=== PATIENT | female | born 1995 | race Caucasian/White ===

== ENCOUNTER → 2024-06-21 | Outpatient (CLI) | payer OTHER ==
[2024-06-21 21:02] LABS: Bacterial Vaginosis PCR Negative (NEGATIVE); Candida Group, PCR NOT DETECTED (NOT DETECT); Candida glabrata-krusei, PCR NOT DETECTED (NOT DETECT)
== END ==
LOC: LAB 17:13 → LAB SHORT 17:13
DX: N89.8 Other specified noninflammatory disorders of vagina (principal); R82.90 Unspecified abnormal findings in urine
CPT/HCPCS: 81515; 87086

== ENCOUNTER → 2024-12-31 | Outpatient (CLI) | payer BC ==
[2024-12-31 15:36] LABS: Source, Urine Clean Catch
[2024-12-31 18:26] LABS: Red Blood Cells, Urine 25-50 /hpf (0-2)
== END ==
LOC: LAB SHORT 15:28 → LAB 15:28
PROVIDERS: Physician Assistant
DX: R31.9 Hematuria, unspecified (principal)
CPT/HCPCS: 81015; 87086